=== PATIENT | male | born 1930 | race Caucasian/White ===

== ENCOUNTER 2017-02-11 21:39 | Emergency (ER) | payer MEDICARE, BC ==
--- NOTE | 2017-02-11 22:03 | EDM.PDOC ---
ED HPI GENERAL MEDICAL PROBLEM - General Chief Complaint: Chest Pain Stated Complaint: [facility] Time Seen by Provider: 02/11/17 22:03 - History of Present Illness INITIAL COMMENTS - FREE TEXT/NARRATIVE: 86-year-old male presents to the emergency room by EMS after having an episode of chest discomfort with some confusion. Patient has a history of what they have been told in the past his TIAs where the patient becomes confused. This will generally last 10-30 minutes and then resolves on its own. During these episodes he does not have any associated right or left-sided weakness no slurred speech. He does at times have diffuse weakness. Patient has a history of atherosclerotic cardiovascular disease had a stent placed in November of this year. The patient does have advanced COPD and is on oxygen at home and all the time. This evening the patient was at a concert in [place]. He was doing okay then he developed some confusion this lasted approximately 30 minutes during this time he did have some chest discomfort. It is unclear if the chest discomfort was associated with chest pressure. - Related Data Allergies Allergy/AdvReac Type Severity Reaction Status Date / Time Animal Dander Allergy Mild Cough Uncoded 02/11/17 21:49 smoke Allergy Cough Uncoded 02/11/17 21:49 Home Meds: Home Meds Aspirin [Adult Low Dose Aspirin EC] 81 mg PO DAILY 05/14/14 [History] Latanoprost [Xalatan 0.005% Ophth Soln] 1 drop EYEBOTH BEDTIME 05/14/14 [History ] Multivit-Min/FA/Lycopene/Lut [Centrum Silver] 1 each PO DAILY 05/14/14 [History] Albuterol Sulfate 2.5 mg IH QID PRN 09/06/14 [History] Fluticasone/Salmeterol [Advair 250-50] 1 inhalation IH BID 09/06/14 [History] Ascorbate Calcium [Vitamin C] 500 mg PO DAILY 12/09/14 [History] Lutein 20 mg PO DAILY 12/09/14 [History] Brimonidine Tartrate [Alphagan P] 1 drop EYEBOTH DAILY 01/14/16 [History] Albuterol Sulfate [Proair Hfa] 2 puff IH QID 11/19/16 [History] Erythromycin Base [Erythromycin 0.5% Ophth Oint] 1 applic EYEBOTH BEDTIME [History] Umeclidinium [place] [Incruse Ellipta] 1 inhalation IH DAILY 11/19/16 [History] Clopidogrel [Plavix] 75 mg PO DAILY 02/11/17 [History] Metoprolol Succinate [Toprol XL] 25 mg PO DAILY 02/11/17 [History] atorvaSTATin [Lipitor] 80 mg PO DAILY 02/11/17 [History] Past Medical History HEENT History: Reports: Glaucoma, Macular Degeneration Other HEENT History: wears glasses, top and bottom dentures Cardiovascular History: Reports: None Respiratory History: Reports: COPD Other Respiratory History: continuous 02 3l at home Gastrointestinal History: Other Gastrointestinal History: esophogeal cancer, epigastric pain Genitourinary History: Reports: None Musculoskeletal History: Reports: Arthritis Other Musculoskeletal History: neck pain, rt elbow pain Neurological History: Reports: None Psychiatric History: Reports: None Endocrine/Metabolic History: Reports: None Hematologic History: Reports: None Immunologic History: Reports: None 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 Dermatologic History: Reports: Other (See Below) Other Dermatologic History: dermatitis - Past Surgical History Head Surgeries/Procedures: Reports: None HEENT Surgical History: Reports: Cataract Surgery GI Surgical History: Reports: Appendectomy Other GI Surgeries/Procedures: 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 Denies: Fever, Chills HEENT: Reports: No Symptoms Respiratory: Reports: Shortness of Breath (This is chronic no worse than normal) , Cough (This is chronic). Denies: Wheezing Cardiovascular: Reports: Chest Pain. Denies: Dyspnea on Exertion, Edema, Palpitations Endocrine: Reports: No Symptoms GI/Abdominal: Reports: No Symptoms : Reports: No Symptoms Neurological: Reports: Confusion. Denies: Dizziness, Headache, Numbness, Paresthesia, Tremors Psychiatric: Reports: No Symptoms ED EXAM, GENERAL - Physical Exam Exam: See Below General Appearance: Alert, No Apparent Distress, Other (Stroke score 0 at the time of my exam) Eye Exam: Bilateral Eye: EOMI, Normal Inspection, PERRL Ears: Normal External Exam, Normal Canal, Hearing Grossly Normal, Normal TMs Nose: Normal Inspection, Normal Mucosa Throat/Mouth: Normal Inspection, Normal Lips, Normal Oropharynx, No Airway Compromise Head: Atraumatic, Normocephalic Neck: Normal Inspection, Supple, Non-Tender, Full Range of Motion. No: Lymphadenopathy (L), Lymphadenopathy (R), Tender Lateral, Tender Midline Respiratory/Chest: No Respiratory Distress, Lungs Clear, Normal Breath Sounds, Other (Slightly diminished breath sounds prolonged expiration no wheezes crackles or rhonchi) Cardiovascular: Regular Rate, Rhythm, No Edema, No Murmur GI/Abdominal: Normal Bowel Sounds, Soft, Non-Tender Back Exam: Normal Inspection. No: CVA Tenderness (L), CVA Tenderness (R) Extremities: Normal Inspection, No Pedal Edema Neurological: Alert, Oriented, CN II-XII Intact, Normal Cognition, No Motor/ Sensory Deficits Psychiatric: Normal Affect, Normal Mood Course - Vital Signs Last Recorded V/S: Last Vital Signs Temp 37.1 C 02/11/17 21:40 Pulse 81 02/11/17 21:40 Resp 18 02/11/17 21:40 BP 151/67 H 02/11/17 21:40 Pulse Ox 94 L 02/11/17 21:40 - Orders/Labs/Meds Orders: Active Orders 24 hr Category Date Time Status EKG Documentation Completion [RC] STAT Care 02/11/17 22:35 Active Chest 1V Frontal [CR] Stat Exams 02/11/17 22:35 Taken Head wo Cont [CT] Stat Exams 02/11/17 22:35 Taken Labs: Laboratory Tests 02/11/17 02/11/17 02/11/17 Range/Units 22:35 22:35 22:48 WBC 7.72 (4.23-9.07) K/mm3 RBC 3.91 L (4.63-6.08) M/mm3 Hgb 12.1 L (13.7-17.5) gm/L Hct 36.6 L (40.1-51.0) % MCV 93.6 H (79.0-92.2) fl MCH 30.9 (25.7-32.2) pg MCHC 33.1 (32.2-35.5) g/dl RDW Std Deviation 44.2 H (35.1-43.9) fL Plt Count 176 (163-337) K/mm3 MPV 9.8 (9.4-12.3) fl Neutrophils % (Manual) 63 H (40-60) % Band Neutrophils % 0 (0-10) % Lymphocytes % (Manual) 25 (20-40) % Atypical Lymphs % 0 % Monocytes % (Manual) 9 (2-10) % Eosinophils % (Manual) 3 (0.8-7.0) % Basophils % (Manual) 0 L (0.2-1.2) Platelet Estimate Adequate Plt Morphology Comment Normal RBC Morph Comment Normal PT 11.4 (8.0-13.0) SECONDS INR 1.04 APTT 30 (22-36) SECONDS Sodium 136 (136-145) mEq/L Potassium 3.8 (3.5-5.1) mEq/L Chloride 101 (98-107) mEq/L Carbon Dioxide 28 (21-32) mEq/L Anion Gap 10.8 (5-15) BUN 14 (7-18) mg/dL Creatinine 1.4 H (0.7-1.3) mg/dL Est Cr Clr Drug Dosing 35.98 mL/min Estimated GFR (MDRD) 48 (>60) mL/min BUN/Creatinine Ratio 10.0 L (14-18) Glucose 122 H (83-115) mg/dL Calcium 8.3 L (8.5-10.1) mg/dL Total Bilirubin 0.5 (0.2-1.0) mg/dL AST 30 (15-37) U/L ALT 31 (16-63) U/L Alkaline Phosphatase 94 (46-116) U/L Troponin I 0.017 (0.00-0.056) ng/mL Total Protein 7.0 (6.4-8.2) g/dl Albumin 3.5 (3.4-5.0) g/dl Globulin 3.5 gm/dL Albumin/Globulin Ratio 1.0 (1-2) Urine Color (Yellow) Urine Appearance (Clear) Urine pH (5.0-8.0) Ur Specific [place] (1.005-1.030) Urine Protein (Negative) Urine Glucose (UA) (Negative) Urine Ketones (Negative) Urine Occult Blood (Negative) Urine Nitrite (Negative) Urine Bilirubin (Negative) Urine Urobilinogen (0.2-1.0) Ur Leukocyte Esterase (Negative) Urine RBC (0-5) /hpf Urine WBC (0-5) /hpf Ur Epithelial Cells (0-5) /hpf Urine Bacteria (FEW) /hpf Urine Mucus (FEW) /hpf 02/11/17 Range/Units 23:55 WBC (4.23-9.07) K/mm3 RBC (4.63-6.08) M/mm3 Hgb (13.7-17.5) gm/L Hct (40.1-51.0) % MCV (79.0-92.2) fl MCH (25.7-32.2) pg MCHC (32.2-35.5) g/dl RDW Std Deviation (35.1-43.9) fL Plt Count (163-337) K/mm3 MPV (9.4-12.3) fl Neutrophils % (Manual) (40-60) % Band Neutrophils % (0-10) % Lymphocytes % (Manual) (20-40) % Atypical Lymphs % % Monocytes % (Manual) (2-10) % Eosinophils % (Manual) (0.8-7.0) % Basophils % (Manual) (0.2-1.2) Platelet Estimate Plt Morphology Comment RBC Morph Comment PT (8.0-13.0) SECONDS INR APTT (22-36) SECONDS Sodium (136-145) mEq/L Potassium (3.5-5.1) mEq/L Chloride (98-107) mEq/L Carbon Dioxide (21-32) mEq/L Anion Gap (5-15) BUN (7-18) mg/dL Creatinine (0.7-1.3) mg/dL Est Cr Clr Drug Dosing mL/min Estimated GFR (MDRD) (>60) mL/min BUN/Creatinine Ratio (14-18) Glucose (83-115) mg/dL Calcium (8.5-10.1) mg/dL Total Bilirubin (0.2-1.0) mg/dL AST (15-37) U/L ALT (16-63) U/L Alkaline Phosphatase (46-116) U/L Troponin I (0.00-0.056) ng/mL Total Protein (6.4-8.2) g/dl Albumin (3.4-5.0) g/dl Globulin gm/dL Albumin/Globulin Ratio (1-2) Urine Color Yellow (Yellow) Urine Appearance Clear (Clear) Urine pH 7.5 (5.0-8.0) Ur Specific [place] 1.020 (1.005-1.030) Urine Protein Negative (Negative) Urine Glucose (UA) Negative (Negative) Urine Ketones Negative (Negative) Urine Occult Blood Negative (Negative) Urine Nitrite Negative (Negative) Urine Bilirubin Negative (Negative) Urine Urobilinogen 0.2 (0.2-1.0) Ur Leukocyte Esterase Negative (Negative) Urine RBC 0-5 (0-5) /hpf Urine WBC 0-5 (0-5) /hpf Ur Epithelial Cells 0-5 (0-5) /hpf Urine Bacteria Not seen (FEW) /hpf Urine Mucus Not seen (FEW) /hpf - Re-Assessments/Exams Free Text/Narrative Re-Assessment/Exam: 02/12/17 01:01 Patient was evaluated in the emergency room had a fairly normal neurologic examination. EKG was nondiagnostic he has a right bundle branch block we do not have priors but from reviewing his old records from [facility] this is not new. Does not show any acute ST-T wave changes. Troponin is normal lab evaluation is normal except for a mild anemia. Chest x-ray shows hyperinflated lung [place] without obvious infiltrate. Head CT shows no acute changes. The patient has done well during his stay the emergency room without any more symptoms. Did offer him and his admission or observation and this was declined today would like to be discharged at this point. I was hoping to get some of his neurologic workup it's been done at [facility] and was unable to do so. Departure - Departure Time of Disposition: 01:05 Disposition: Home, Self-Care 01 Clinical Impression: Transient confusion, Chest pain Referrals: PCP,Not In Area [Primary Care Provider] - Forms: ED Department Discharge Additional Instructions: Return to the emergency room with any questions problems or worsening symptoms. Follow-up with your regular physician later this week. - My Orders Last 24 Hours: My Active Orders 02/11/17 22:35 EKG Documentation Completion [RC] STAT Chest 1V Frontal [CR] Stat Head wo Cont [CT] Stat - Assessment/Plan Last 24 Hours: My Active Orders 02/11/17 22:35 EKG Documentation Completion [RC] STAT Chest 1V Frontal [CR] Stat Head wo Cont [CT] Stat
[2017-02-12 01:26] VITALS: BP 139/74
--- NOTE | 2017-02-12 08:42 | CT ---
Head CT Technique: Multiple axial sections through the brain were obtained. Intravenous contrast was not utilized. Comparison: No previous intracranial imaging. Findings: Ventricles along with basal cisterns and sulci over the convexities are moderately prominent. Atherosclerotic calcification is noted within the vertebral vessels and carotid siphon. Minimal diminished density is noted within portions of the periventricular white matter compatible with small vessel ischemic demyelination change. No other abnormal parenchymal densities are seen. No evidence of intracranial hemorrhage. No midline shift or mass effect is seen. Bone window settings were reviewed which show the visualized sinuses to appear clear. No acute calvarial abnormality is seen. Impression: 1. Generalized atrophy. Nothing acute is appreciated on noncontrast head CT study. Diagnostic code #2 I agree with preliminary report issued by [employer] ([employer] preliminary report dictated on 02/12/17, 12:21 AM Central Time)
--- NOTE | 2017-02-12 08:42 | CR ---
Chest: Frontal view of the chest was obtained. Comparison: No previous study. Mild increased lung markings are seen which are felt compatible with a combination of scarring and interstitial fibrosis. Findings are worse on the right side. Nothing acute is appreciated within the lungs. Heart size and mediastinum are within normal limits. Bony structures are grossly intact. Impression: 1. Increased lung markings as well as areas of scarring which is felt compatible with chronic change. 2. Nothing acute is suspected. Diagnostic code #2
== END 2017-02-12 01:17 | disposition home or self-care (01) ==
LOC: JD.ED 21:39
DX: R07.9 Chest pain, unspecified (principal); R41.0 Disorientation, unspecified; J44.9 Chronic obstructive pulmonary disease, unspecified; M19.90 Unspecified osteoarthritis, unspecified site; Z85.01 Personal history of malignant neoplasm of esophagus; Z98.49 Cataract extraction status, unspecified eye; Z90.49 Acquired absence of other specified parts of digestive tract; Z87.891 Personal history of nicotine dependence; Z79.02 Long term (current) use of antithrombotics/antiplatelets; Z79.899 Other long term (current) drug therapy; Z79.82 Long term (current) use of aspirin
CPT/HCPCS: 36415; 70450; 70450-26; 71010; 71010-26; 80053; 81001; 84484; 85025; 85610; 85730; 93005; 99284; 99285-25